=== PATIENT | male | born 1965 | race African-American/Black ===

== ENCOUNTER → 2018-03-29 | Outpatient (CLI) | payer BC ==
--- NOTE | 2018-03-29 13:30 | RADIOLOGY REPORT (SQ) ---
EXAM DESCRIPTION: CHEST PA/LATERAL COMPLETED DATE/TIME: 03/29/2018 12:56 pm REASON FOR STUDY: PNEUMONIA, UNSPECIFIED ORGANISM. Cough since 03/23. Fever. COMPARISON: None. EXAM PARAMETERS: NUMBER OF VIEWS: two views TECHNIQUE: Digital Frontal and Lateral radiographic views of the chest acquired. RADIATION DOSE: NA LIMITATIONS: Expiratory technique. FINDINGS: LUNGS AND PLEURA: There are streaky infiltrates at right lung base consistent with discoid atelectasis. Otherwise no acute infiltrates seen. MEDIASTINUM AND HILAR STRUCTURES: No masses or contour abnormalities. HEART AND VASCULAR STRUCTURES: Borderline cardiac size. Pulmonary vasculature is normal. BONES: No acute findings. HARDWARE: None in the chest. OTHER: No other significant finding. IMPRESSION: Right basilar discoid atelectasis. Otherwise, no acute disease. TECHNICAL DOCUMENTATION: JOB ID: [id number] [employer]- All Rights Reserved Reading location - IP/workstation name: [email or web address]
== END ==
LOC: OD 12:45
PROVIDERS: ATTEND Internal Medicine
DX: J18.9 Pneumonia, unspecified organism (principal); J98.11 Atelectasis
CPT/HCPCS: 71046

== ENCOUNTER 2018-04-04 19:48 | Emergency (ER) | payer BC ==
[2018-04-04] MEDS ORDERED: MORPHINE SULFATE 10 MG/ML INJ IV ONE (20:44)
[2018-04-04] MEDS ORDERED: KETOROLAC TROMETHAMINE INJ/PF 30 MG/1 ML SDV IV ONE (20:45)
[2018-04-04] MEDS ORDERED: ONDANSETRON HCL INJ/PF 4 MG/2 ML SDV IV ONE (20:45)
[2018-04-04] MEDS ORDERED: NORMAL SALINE 1000 ML 1,000 ML IV ONE (20:45)
--- NOTE | 2018-04-04 20:47 | ER Document Report ---
ED GI/ - General Chief Complaint: Upper Abdominal Pain Stated Complaint: UPPER EPIGASTRIC PAIN,VOMITING Time Seen by Provider: 04/04/18 20:38 Primary Care Provider: [facility] [Provider Group] - 04/05/18 Notes: Patient is a 52-year-old male that comes to the emergency department for chief complaint of sudden onset severe upper abdominal pain with vomiting, symptoms started about 5 PM, so denies radiation of the pain, denies chest pain, denies fever or chills. He states he was diagnosed with pneumonia last and has been taking an antibiotic once a day but he cannot remember the name (Levaq uin?). He denies smoking, alcohol, recreational drugs, surgeries, or diagnosed medical problems he takes daily medications for. TRAVEL OUTSIDE OF THE [place] IN LAST 30 DAYS: No - Related Data Allergies/Adverse Reactions: No Known Allergies Allergy (Unverified 04/04/18 19:51) Past Medical History - General Information source: Patient - Social History Smoking Status: Never Smoker Chew tobacco use (# tins/day): No Frequency of alcohol use: None Drug Abuse: None Lives with: Family Family History: Reviewed & Not Pertinent Patient has suicidal ideation: No Patient has homicidal ideation: No Pulmonary Medical History: Reports: Hx Pneumonia Renal/ Medical History: Denies: Hx Peritoneal Dialysis Surgical Hx: Negative - Immunizations Immunizations up to date: Yes Hx Diphtheria, Pertussis, Tetanus Vaccination: Yes Review of Systems - Review of Systems Constitutional: No symptoms reported EENT: No symptoms reported Cardiovascular: No symptoms reported Respiratory: No symptoms reported Gastrointestinal: See HPI Genitourinary: No symptoms reported Male Genitourinary: No symptoms reported Musculoskeletal: No symptoms reported Skin: No symptoms reported Hematologic/Lymphatic: No symptoms reported Neurological/Psychological: No symptoms reported Physical Exam - Vital signs Vitals: Temp Pulse Resp BP Pulse Ox 98.3 F 92 22 H 154/111 H 100 04/04/18 20:10 04/04/18 20:10 04/04/18 20:10 04/04/18 20:10 04/04/18 20:10 - Notes Notes: GENERAL: Alert, interacts well. Appears to be in pain, holding his upper abdomen. HEAD: Normocephalic, atraumatic. EYES: Pupils equal, round, and reactive to light. Extraocular movements intact. ENT: Oral mucosa moist, tongue midline. Oropharynx unremarkable. Airway patent. Nares patent, no nasal septal hematoma, TM's intact. NECK: Full range of motion. Supple. Trachea midline. LUNGS: Clear to auscultation bilaterally, no wheezes, rales, or rhonchi. No respiratory distress. HEART: Regular rate and rhythm. No murmur ABDOMEN: Tender in the epigastric area mainly and somewhat in the right upper quadrant, remaining abdomen is benign. GENITOURINARY: Deferred EXTREMITIES: Moves all 4 extremities spontaneously. No edema, normal radial and dorsalis pedis pulses bilaterally. No cyanosis. BACK: no cervical, thoracic, lumbar midline tenderness. No saddle anesthesia, normal distal neurovascular exam. NEUROLOGICAL: Alert and oriented x3. Normal speech. [cranial nerves II through XII grossly intact]. SKIN: Warm, dry, normal turgor. No rashes or lesions noted. Course - Re-evaluation Re-evalutation: After medications patient symptoms completely resolved. CBC, chemistry, urinalysis unremarkable. Lipase unremarkable. Ultrasound showing sludge and probable gallstones. Unremarkable otherwise. I discussed options with patient. He states because he has no symptoms he would prefer to try to eat something and go home with follow-up instead of staying for surgery consult. Patient tolerated p.o. without any symptoms at all. Discussed recommendations, follow-up, return precautions. Patient and significant other state understanding and agreement. Stable at time of discharge. - Vital Signs Vital signs: Temp Pulse Resp BP Pulse Ox 98.0 F 85 17 129/69 H 94 04/05/18 00:37 04/05/18 00:37 04/05/18 00:37 04/05/18 00:37 04/05/18 00:37 - Laboratory Result Diagrams: 04/04/18 20:46 04/04/18 20:46 Laboratory results interpreted by me: 04/04/18 04/04/18 04/04/18 20:46 20:46 20:46 Plt Count 708 H ALT 20 L Urine Urobilinogen 2.0 H Discharge - Discharge Clinical Impression: Epigastric pain Cholelithiasis Qualifiers: Cholelithiasis location: gallbladder Cholecystitis presence: without cholecystitis Biliary obstruction: without biliary obstruction Qualified Code(s): K80.20 - Calculus of gallbladder without cholecystitis without obstruction Condition: Stable Disposition: HOME, SELF-CARE Additional Instructions: Your examination is most consistent with pain from your gallbladder. Your gallbladder evaluation ultrasound shows sludge and probable gallstones as well. The remaining workup is unremarkable. Avoid fatty foods, eat smaller more regular meals during the day. If needed take the provided medication for pain and the provided nausea medication. Follow-up closely with the surgical referral listed, call to set up your appointment. Return for any concerning or worsening symptoms including returned severe pain, uncontrolled vomiting, fever, or any other concerning or worsening symptoms. Prescriptions: Ketorolac Tromethamine [Toradol 10 mg Tablet] 10 mg PO Q8HP PRN #24 tablet PRN Reason: Promethazine HCl [Phenergan 25 mg Tablet] 25 mg PO Q6H PRN #20 tablet PRN Reason: Forms: Return to Work Referrals: [facility] [Provider Group] - 04/05/18
[2018-04-04 21:01] LABS: ABSOLUTE BASOPHILS # (AUTO) 0.1 10^3/uL (0.0-0.2); ABSOLUTE EOSINOPHILS # (AUTO) 0.2 10^3/uL (0.0-0.6); ABSOLUTE LYMPHOCYTES (AUTO) 1.8 10^3/uL (0.5-4.7); ABSOLUTE MONOCYTES (AUTO) 0.7 10^3/uL (0.1-1.4); ABSOLUTE NEUT (AUTO) 6.5 10^3/uL (1.7-8.2); BASOPHILS % (AUTO) 0.8 % (0-2); EOSINOPHILS % (AUTO) 1.9 % (0-6); HEMATOCRIT 47.3 % (37.9-51.0); HEMOGLOBIN 16.7 g/dL (13.5-17.0); LYMPHOCYTES % (AUTO) 19.3 % (13-45); MEAN CORPUSCULAR HEMOGLOBIN 31.9 pg (27.0-33.4); MEAN CORPUSCULAR HGB CONC 35.3 g/dL (32.0-36.0); MEAN CORPUSCULAR VOLUME 90 fl (80-97); MONOCYTES % (AUTO) 7.3 % (3-13); PLATELET COUNT 708 10^3/uL (150-450); RED BLOOD COUNT 5.24 10^6/uL (4.35-5.55); RED CELL DISTRIBUTION WIDTH 13.8 % (11.5-14.0); SEGMENTED NEUTROPHILS % (AUTO) 70.7 % (42-78); TOTAL CELLS COUNTED % (AUTO) 100 %; WHITE BLOOD COUNT 9.2 10^3/uL (4.0-10.5)
[2018-04-04 21:20] LABS: ALANINE AMINOTRANSFERASE 20 U/L (21-72); ALBUMIN 4.2 g/dL (3.5-5.0); ALKALINE PHOSPHATASE 75 U/L (38-126); ANION GAP 13 (5-19); ASPARTATE AMINO TRANSFERASE 19 U/L (17-59); BILIRUBIN,DIRECT 0.3 mg/dL (0.0-0.4); BLOOD UREA NITROGEN 14 mg/dL (7-20); CALCIUM 9.6 mg/dL (8.4-10.2); CARBON DIOXIDE 25 mmol/L (22-30); CHLORIDE 105 mmol/L (98-107); GLUCOSE 100 mg/dL (75-110); LIPASE 58.4 U/L (23-300); POTASSIUM 4.3 mmol/L (3.6-5.0); SODIUM 143.3 mmol/L (137-145); TOTAL PROTEIN 7.9 g/dL (6.3-8.2)
--- NOTE | 2018-04-04 22:05 | RADIOLOGY REPORT (SQ) ---
US ABDOMEN LIMITED HISTORY: Right upper quadrant pain. COMPARISON: None. TECHNIQUE: Grayscale and color Doppler imaging of the right upper quadrant was performed. FINDINGS: The liver has normal echotexture without focal lesion identified. The main portal vein has normal hepatopetal flow. Possible echogenic stones without shadowing. Gallbladder sludge is present. No pericholecystic fluid or gallbladder wall thickening. The common bile duct is normal caliber. The pancreas is not visualized due to overlying bowel gas. No hydronephrosis or shadowing renal stones are identified. The right kidney measures 10.2 cm in length. The visualized portions of the IVC and aorta are patent. IMPRESSION: Gallbladder sludge with possible gallstones. No evidence of acute cholecystitis.
[2018-04-04 22:51] LABS: AMORPHOUS SEDIMENT,URINE TRACE /HPF; APPEARANCE,URINE CLOUDY; BILIRUBIN,URINE NEGATIVE (NEGATIVE); COLOR,URINE YELLOW; GLUCOSE, URINE NEGATIVE (NEGATIVE); KETONES,URINE NEGATIVE (NEGATIVE); LEUKOCYTE ESTERASE,URINE NEGATIVE (NEGATIVE); NITRITE,URINE NEGATIVE (NEGATIVE); PROTEIN,URINE NEGATIVE (NEGATIVE); URINE SPECIFIC GRAVITY 1.019
[2018-04-04] MEDS ORDERED: HYDROCODONE/ACETAMINOPHEN 5-325 MG (6 TAB/ER DISP) PO PRN (23:50)
[2018-04-04] MEDS ORDERED: ONDANSETRON ODT 4 MG TAB (6 TAB/ER DISP) PO PRN (23:51)
[2018-04-05 00:48] VITALS: BP 129/69
== END 2018-04-05 00:37 | disposition home or self-care (01) ==
LOC: ER 19:48
DX: K80.20 Calculus of gallbladder without cholecystitis without obstruction (principal); R10.13 Epigastric pain; R11.10 Vomiting, unspecified
CPT/HCPCS: 99284; 96361; 96374; 96375; 36415; 83690; 85025; 80053; 81001; 76705; J1885; J2270; J2405; J7030

== ENCOUNTER 2018-04-26 05:41 | Day surgery (SDC) | payer BC ==
[2018-04-20 11:37] LABS: HEMATOCRIT 44.4 % (37.9-51.0); HEMOGLOBIN 15.4 g/dL (13.5-17.0); MEAN CORPUSCULAR HGB CONC 34.8 g/dL (32.0-36.0); MEAN CORPUSCULAR VOLUME 92 fl (80-97); PLATELET COUNT 481 10^3/uL (150-450); RED BLOOD COUNT 4.83 10^6/uL (4.35-5.55); RED CELL DISTRIBUTION WIDTH 14.3 % (11.5-14.0)
[2018-04-20 11:57] LABS: ALANINE AMINOTRANSFERASE 15 U/L (21-72); ALBUMIN 3.9 g/dL (3.5-5.0); ALKALINE PHOSPHATASE 63 U/L (38-126); AMYLASE 46 U/L (30-110); ANION GAP 9 (5-19); ASPARTATE AMINO TRANSFERASE 20 U/L (17-59); BILIRUBIN,DIRECT 0.2 mg/dL (0.0-0.4); BILIRUBIN,TOTAL 1.9 mg/dL (0.2-1.3); BLOOD UREA NITROGEN 12 mg/dL (7-20); CALCIUM 9.2 mg/dL (8.4-10.2); CARBON DIOXIDE 27 mmol/L (22-30); CHLORIDE 107 mmol/L (98-107); GLUCOSE 85 mg/dL (75-110); POTASSIUM 4.8 mmol/L (3.6-5.0); SODIUM 142.5 mmol/L (137-145); TOTAL PROTEIN 7.4 g/dL (6.3-8.2)
[~2018-04-26 05:41] MED LIST: ACETAMINOPHEN 325 MG TABLET PO PRN; CEFAZOLIN 1 GM/D5W RTU 1 GM/50 ML RTUPB IV ONE; CEFAZOLIN 1 GM/D5W RTU 1 GM/50 ML RTUPB IV PRN; LACTATED RINGERS 1000 ML IV PRN; LIDOCAINE 0.5% INJ-PF (5 MG/ML) 50 ML SDV SUBCUT PRN
[2018-04-26] MEDS ORDERED: BUPIVACAINE HCL 0.5%-EPI 1:200000 INJ/PF 30 ML VIAL ONE (06:49)
[2018-04-26] MEDS ORDERED: BUPIVACAINE HCL 0.5%/EPI 1:200000 INJ 1.8 ML CARTRIDGE ONE (06:49)
[2018-04-26] MEDS ORDERED: MIDAZOLAM 2 MG/2 ML INJ ONE (07:05)
[2018-04-26] MEDS ORDERED: PROMETHAZINE HCL INJ 25 MG/1 ML VIAL ONE (07:05)
[2018-04-26] MEDS ORDERED: FENTANYL CITRATE INJ/PF 100 MCG/2 ML AMPUL ONE (07:05)
[2018-04-26] MEDS ORDERED: PROPOFOL INJ 200 MG/20 ML VIAL IV ONE (07:06)
[2018-04-26] MEDS ORDERED: ONDANSETRON HCL INJ/PF 4 MG/2 ML SDV ONE (07:06)
[2018-04-26] MEDS ORDERED: DEXAMETHASONE SOD PHOSPHATE INJ 4 MG/1 ML VIAL ONE (07:06)
[2018-04-26] MEDS ORDERED: ACETAMINOPHEN 1,000 MG/100 ML RTUPB IV ONE (07:06)
[2018-04-26] MEDS ORDERED: EPHEDRINE SULFATE INJ 50 MG/1 ML AMPULE ONE (07:06)
[2018-04-26] MEDS ORDERED: MORPHINE SULFATE 10 MG/ML INJ IV PRN (07:41)
[2018-04-26] MEDS ORDERED: MEPERIDINE HCL/PF INJ 25 MG/1 ML DISP.SYRIN IV PRN (07:41)
[2018-04-26] MEDS ORDERED: DIPHENHYDRAMINE HCL 50 MG/ML VIAL IV PRN (07:41)
[2018-04-26] MEDS ORDERED: FENTANYL CITRATE INJ/PF 100 MCG/2 ML AMPUL IV PRN ×3 (07:41)
[2018-04-26] MEDS ORDERED: PROMETHAZINE HCL INJ 25 MG/1 ML VIAL IV PRN ×3 (07:41→09:32)
[2018-04-26] MEDS ORDERED: HYDROMORPHONE HCL INJ/PF 2 MG/ML AMPULE ONE (08:09)
--- NOTE | 2018-04-26 08:31 | Operative Report ---
Nonrecallable Operative Report DATE OF SURGERY: 04/26/18 Operative Report: see dictation PREOPERATIVE DIAGNOSIS: chronic cholecystitis,cholelithiasis POSTOPERATIVE DIAGNOSIS: chronic cholecystitis,cholelithiasis OPERATION: laparoscopic cholecystectomy SURGEON: HAMMAD MCCRAY 1ST RESIDENT BUYER: BARBARA JI ANESTHESIA: GA TISSUE REMOVED OR ALTERED: gallbladder COMPLICATIONS: none ESTIMATED BLOOD LOSS: 25cc INTRAOPERATIVE FINDINGS: see dictation PROCEDURE: see dictation
--- NOTE | 2018-04-26 08:34 | Discharge Summary ---
Discharge Summary (SDC) - Discharge Final Diagnosis: chronic cholecystitis cholelithiasis Date of Surgery: 04/26/18 Condition: Good Referrals: SAMANTHA CUEVAS MD [Primary Care Provider] - Discharge Diet: As Tolerated Discharge Activity: Activity As Tolerated, No Lifting Over 10 Pounds Report the Following to Your Physician Immediately: Shortness of Breath, Nausea, Vomiting, Increase in Pain, Yellow Skin, Fever over 101 Degrees
--- NOTE | 2018-04-26 09:23 | OPERATIVE REPORT E ---
Operative Report NAME: JEM GORE : 1965 AGE: 52Y DATE OF SURGERY: April 26, 2018 ROOM: PREOPERATIVE DIAGNOSIS: Chronic cholecystitis and cholelithiasis. POSTOPERATIVE DIAGNOSIS: Chronic cholecystitis and cholelithiasis. OPERATION: Laparoscopic cholecystectomy. SURGEON: HAMMAD MCCRAY M.D. ADMINISTRATIVE OFFICE ASSISTANT: СЕРГЕЙ Lazaro; who was present for the entire case for assisting and wound retraction and wound closure. PROCEDURE: The patient was brought to the operating room in awake, alert, and stable condition, and placed on the operating table in supine position, induced under general anesthesia, and intubated. The abdomen was prepped and draped in usual sterile manner for the procedure. A Veress needle was placed into the umbilicus and the abdomen was insufflated with 6 liters of CO2 gas. An infraumbilical 10 mm incision was made with a 15 blade and a 10 mm port placed in the abdominal cavity. Intraabdominal visualization revealed no evidence of a Veress needle and trocar injury. Five mm epigastric port was placed under direct vision and two lateral 5 mm ports all under direct vision. The gallbladder was identified. It was placed on traction. The hepatoduodenal ligament was isolated and dissected. The cystic duct and cystic artery were both dissected out of the hepatoduodenal ligament. Two Endoclips was placed in the stay side and one in the specimen side of the cystic duct and the cystic artery. Both of these structures were divided. We then reinforced the cystic duct stump with a Endoloop of 0-PDS suture. We then dissected the gallbladder out of the liver bed with Bovie Cautery, placed it in an Endobag and then removed it through the umbilical port site. The right upper quadrant was then irrigated with normal saline, suctioned dry. Hemostasis of the liver bed was obtained with Bovie cautery. Once we had good hemostasis, the ports were removed. The fascial defect of the umbilical port site was closed with 0-Vicryl and then the four skin incisions were closed with intracuticular 4-0 Monocryl. Steri-Strips completed the procedure. Estimated blood loss was less than 25 mL. Sponge and needle counts were correct x2. The patient was awakened in the operating room, extubated, and transferred to recovery in stable condition. No complications. DICTATING PHYSICIAN: HAMMAD MCCRAY M.D. [id number] PHY#: [id number] ID: [id number] JOB#: [id number] ACCT: [id number] cc:HAMMAD MCCRAY M.D. >
[2018-04-26] MEDS ORDERED: RINGERS SOLUTION,LACTATED 1,000 ML IV PRN (09:29)
[2018-04-26] MEDS ORDERED: MAG HYDROX/AL HYDROX/SIMETH SUSP 30 ML UDCUP PO PRN (09:30)
[2018-04-26] MEDS ORDERED: TRAMADOL HCL 50 MG TABLET PO PRN (09:31)
[2018-04-26] MEDS ORDERED: PROMETHAZINE HCL 25 MG SUPP.RECT PR PRN (09:33)
[2018-04-26] MEDS ORDERED: TRAMADOL HCL 50 MG TABLET ONE (09:43)
[2018-04-26 11:29] VITALS: BP 159/103
[2018-04-26] MEDS ORDERED: KETOROLAC TROMETHAMINE 60 MG/2 ML SDV ONE (15:20)
[2018-04-26] MEDS ORDERED: ROCURONIUM BROMIDE INJ 50 MG/5 ML VIAL IV ONE (15:20)
[2018-04-26] MEDS ORDERED: SUCCINYLCHOLINE CHLORIDE INJ 200 MG/10 ML VIAL ONE (15:20)
[2018-04-26] MEDS ORDERED: GLYCOPYRROLATE 1 MG/5 ML SYRINGE ONE (15:20)
[2018-04-26] MEDS ORDERED: NEOSTIGMINE METHYLSULFATE 10 MG/10 ML VIAL ONE (15:20)
== END 2018-04-26 10:40 | disposition home or self-care (01) ==
LOC: OROUT 05:41
PROVIDERS: ATTEND Surgery
DX: K80.10 Calculus of gallbladder with chronic cholecystitis without obstruction (principal)
CPT/HCPCS: 36415; 82150; 85027; 80076; 80048; 88304 ×2; 47562; J2250; J3490 ×3; J0690; J1100; J1885; J3010; J2550; J0330; J2405; J2704; J0131; 790; J1170